=== PATIENT | male | born 1955 | race Caucasian/White ===

== ENCOUNTER 2020-01-17 13:07 | Outpatient (CLI) | payer OTHER, SELFPAY ==
--- NOTE | 2020-01-17 13:30 | US_ITS ---
WS: [id number] INDICATION: Diez's neuroma TECHNIQUE: Ultrasound soft tissue right foot FINDINGS: Ultrasound soft tissue right foot in the area of concern. Ultrasound performed at second third metatarsals plantar surface. Focal hypoechoic lesion in the area of concern between the second third metatarsals. Findings are suspicious for Diez's ne uroma. Hypoechoic lesion measures 5.1 x 3.4 x 5.2 mm. No other significant findings. Small amount of surrounding fluid likely inflammatory. US/US soft tissue/extremity [id number] IMPRESSION: Focal hypoechoic lesion in the area of concern between the second a nd third metatarsal suspicious for Diez's neuroma. Hypoechoic lesion measures 5.1 x 3.4 x 5.2 mm
== END 2020-01-17 13:08 | disposition home or self-care (01) ==
LOC: RAD 13:10
PROVIDERS: PCP Internal Medicine; Visit Provider Podiatrist Foot & Ankle Surgery
DX: G57.61 Lesion of plantar nerve, right lower limb (principal)
CPT/HCPCS: 76882

== ENCOUNTER 2020-03-26 12:57 | Outpatient (CLI) | payer OTHER, SELFPAY ==
--- NOTE | 2020-03-26 13:00 | CT_ITS ---
WS: [id number] CT CHEST WITHOUT INTRAVENOUS CONTRAST HISTORY: Pulmonary nodule TECHNIQUE: Contiguous 5 mm axial imaging performed on the thorax. Coronal and sagittal reformats are submitted. All CT scans at [facility] use at least one of these dose optimization techniq ues: automated exposure control; mA and/or kV adjustment per patient size (includes targeted exams wh ere dose is matched to clinical indication); or iterative reconstruction. CONTRAST: None DLP: 1019.92 mGycm COMPARISON: 08/13/2018 and 02/27/2007 Lungs and central airway: Noncalcified 4 mm nodule at the RIGHT lung apex is stable since 2006. Addit ional pleural thickening in the posterior RIGHT upper lobe stable since 08/13/2018. Granuloma RIGHT l ower lobe measures 5 mm. 4 mm noncalcified nodule superior segment LEFT lower lobe. Pleura: Normal. No pleural effusion. Heart and pericardium: Normal size heart. Mild pericardial thickening or small amount of fluid anteri belia. No coronary artery calcifications. Mediastinum and zoya: No mediastinum or hilar adenopathy. Vessels: Normal size aortic and pulmonary artery. No coronary artery calcifications. Chest wall and lower neck: No soft tissue masses. Upper abdomen: Cholelithiasis without evidence for acute cholecystitis. Nonenhanced imaging of the li talia and adrenal glands is negative. Osseous structures: Mild straightening of the normal thoracic kyphosis and spondylosis. CT/CT chest wo con [id number] IMPRESSION: 1. Multiple bilateral subcentimeter pulmonary nodules. Some of these are calci fied and some are noncalcified. 4 mm noncalcified LEFT lower lobe nodule, image 38 of series 2 is the only nodule that has not been present intermediate accountant and stab le. Favor this is also probably benign etiology. 12 month follow-up noncontrast chest CT could be performed to document stability. 2. Cholelithiasis without acute cholecystitis.
== END 2020-03-26 12:58 | disposition home or self-care (01) ==
LOC: RADWPI 13:03
PROVIDERS: PCP Internal Medicine; Visit Provider Internal Medicine Critical Care Medicine
DX: R91.8 Other nonspecific abnormal finding of lung field (principal); K80.20 Calculus of gallbladder without cholecystitis without obstruction
CPT/HCPCS: 71250

== ENCOUNTER 2020-12-21 08:57 | Outpatient (CLI) | payer OTHER, SELFPAY ==
--- NOTE | 2020-12-21 09:04 | XR_ITS ---
WS: [id number] Exam: XR knee LT 3V* [id number] Date/Time of Exam: 12/21/2020 9:04 AM Reason For Exam: LEFT KNEE PAIN Comparison 07/07/2017. No fracture or dislocation. Calcification of the medial meniscus. There may be a calcified loose join t body in the central joint. No joint effusion is seen. XR/XR knee LT 3V* [id number] IMPRESSION: 1. Calcification in the medial meniscus with possible calcified loose joint bod y. 2. No fracture or joint effusion.
== END 2020-12-21 08:58 | disposition home or self-care (01) ==
LOC: RAD 08:59
PROVIDERS: PCP Internal Medicine; Visit Provider Dermatology
DX: M25.562 Pain in left knee (principal); Z02.71 Encounter for disability determination
CPT/HCPCS: 73562